=== PATIENT | male | born 1965 | race Caucasian/White ===

== ENCOUNTER 2018-07-30 01:37 | Emergency (ER) | payer SELFPAY ==
[~2018-07-30] VITALS: Ht 157.5 cm; Wt 72.6 kg
[2018-07-30 01:48] VITALS: BP 119/77
--- NOTE | 2018-07-30 02:09 | NUR ---
PT TO ED C/O R SIDED CHEST PAIN AND L BILAT EXTREMITY NUMBESS X 0600 YESTERDAY. PT ALSO REPORTING R SIDED FACIAL ITCHING. PT DENIES CP RADIATION. PT ABLE TO WALK WITH STEADY GAIT. NO S/S OF DISTRESS. PT PLACED INTO BED, PENDING MD [place]. ER MD AT BEDSIDE.
[2018-07-30] MEDS ORDERED: NACL 0.9% 500 ML IV ONE (02:20)
[2018-07-30 02:39] LABS: WHITE BLOOD COUNT (AUTO) 3.2 K/uL (4.8-10.8)
[2018-07-30 02:45] LABS: BASOPHILS % (AUTO) 0.8 % (0.0-2.0); EOSINOPHILS % (AUTO) 0.8 % (0.0-4.0); HEMATOCRIT 42.2 % (36-52); HEMOGLOBIN 14.2 g/dL (12.0-18.0); LYMPHOCYTES # (AUTO) 1.2 K/uL (2.0-11.5); LYMPHOCYTES % (AUTO) 39.6 % (20.5-51.1); MEAN CORPUSCULAR HEMOGLOBIN 32 pg (27-31); MEAN CORPUSCULAR HGB CONC 34 g/dL (33-37); MEAN CORPUSCULAR VOLUME 93.7 fL (80-94); MONOCYTES # (AUTO) 0.5 K/uL (0.8-1.0); NEUTROPHILS # (AUTO) 1.4 K/uL (1.8-7.7); NEUTROPHILS % (AUTO) 43.6 % (42.2-75.2); PLATELET COUNT (AUTO) 197 K/uL (140-450)
[2018-07-30 02:47] LABS: ANION GAP 9.6 (8-16); CREATININE 0.9 mg/dL (0.7-1.3); POTASSIUM 3.6 mmol/L (3.5-5.1)
[2018-07-30 02:50] LABS: MONOCYTES % (AUTO) 15.2 % (1.7-9.3)
[2018-07-30 02:53] LABS: ALBUMIN 3.8 g/dL (3.4-5.0); TOTAL BILIRUBIN 0.3 mg/dL (0.0-1.0)
--- NOTE | 2018-07-30 03:34 | NUR ---
Patient discharged with v/s stable. Written and verbal after care instructions given and explained. Patient alert, oriented and verbalized understanding of instructions. Ambulatory with steady gait. All questions addressed prior to discharge. ID band removed. Patient advised to follow up with PMD. Rx of PROMETHAZINE given. Patient educated on indication of medication including possible reaction and side effects. Opportunity to ask questions provided and answered.
[2018-07-30 03:35] VITALS: BP 121/76
== END 2018-07-30 03:35 | disposition home or self-care (01) ==
LOC: MED 01:37
DX: J06.9 Acute upper respiratory infection, unspecified (principal); R42 Dizziness and giddiness; E78.00 Pure hypercholesterolemia, unspecified
CPT/HCPCS: 36415; 71045; 80053; 84484; 85025; 93005; 96360; 99284; J7030; Q0092

== ENCOUNTER 2020-04-13 18:46 | Emergency (ER) | payer MEDICAID ==
[~2020-04-13] VITALS: Ht 152.4 cm; Wt 70.8 kg
[2020-04-13 18:59] VITALS: BP 130/81
--- NOTE | 2020-04-13 21:13 | NUR ---
PT TAKEN TO BED 5
--- NOTE | 2020-04-13 21:20 | NUR ---
SEE COMPLETE ASSESSMENT FOR DETAILS.
--- NOTE | 2020-04-13 21:22 | NUR ---
Dr. Angeles examining patient.
[2020-04-13] MEDS ORDERED: NACL 0.9% 500 ML IV ONE (21:30)
--- NOTE | 2020-04-13 21:35 | NUR ---
X-Ray at bedside.
--- NOTE | 2020-04-13 21:43 | NUR ---
Respiratory Therapist at bedside for respiratory intervention.
[2020-04-13 21:49] LABS: BASOPHILS % (AUTO) 0.8 % (0.0-2.0); EOSINOPHILS % (AUTO) 0.6 % (0.0-4.0); HEMATOCRIT 41.1 % (36-52); LYMPHOCYTES # (AUTO) 0.9 K/uL (2.0-11.5); LYMPHOCYTES % (AUTO) 40.8 % (20.5-51.1); MEAN CORPUSCULAR HEMOGLOBIN 32 pg (27-31); MEAN CORPUSCULAR HGB CONC 34 g/dL (33-37); MONOCYTES # (AUTO) 0.4 K/uL (0.8-1.0); NEUTROPHILS # (AUTO) 0.8 K/uL (1.8-7.7); NEUTROPHILS % (AUTO) 39.8 % (42.2-75.2); PLATELET COUNT (AUTO) 170 K/uL (140-450); RED BLOOD CELL COUNT(AUTO) 4.37 MIL/uL (4.20-6.10); RED CELL DISTRIBUTION WIDTH 12.8 % (11.6-13.7); WHITE BLOOD COUNT (AUTO) 2.1 K/uL (4.8-10.8)
[2020-04-13 22:09] LABS: ALBUMIN 3.9 g/dL (3.4-5.0); CARBON DIOXIDE 26.9 mmol/L (21-32); CREATININE 0.9 mg/dL (0.6-1.3); POTASSIUM 3.9 mmol/L (3.5-5.1); TOTAL BILIRUBIN 0.3 mg/dL (0.0-1.0)
[2020-04-13] MEDS ORDERED: KETOROLAC 30 MG/ML VIAL IVP ONE (22:25)
[2020-04-13 23:35] VITALS: BP 123/77
--- NOTE | 2020-04-13 23:35 | NUR ---
Patient discharged with v/s stable. Written and verbal after care instructions given and explained. Patient alert, oriented and verbalized understanding of instructions. Ambulatory with steady gait. All questions addressed prior to discharge. ID band removed. Patient advised to follow up with PMD. Rx of MOTRIN, TRAMADOL given. Patient educated on indication of medication including possible reaction and side effects. Opportunity to ask questions provided and answered.
== END 2020-04-13 23:35 | disposition home or self-care (01) ==
LOC: MED 18:46
DX: A08.4 Viral intestinal infection, unspecified (principal); D72.819 Decreased white blood cell count, unspecified; R03.0 Elevated blood-pressure reading, without diagnosis of hypertension; Z88.0 Allergy status to penicillin
CPT/HCPCS: 36415; 71045; 80053; 85025; 87426; 96374; 99284; J1885; J7030; 93005